=== PATIENT | male | born 1955 | race Caucasian/White ===

== ENCOUNTER 2020-12-20 01:14 | Day surgery (SDC) | payer BC, MEDICARE, SELFPAY ==
[2020-12-10 14:50] VITALS: BMI 33.7
--- NOTE | 2020-12-20 07:42 | WPDANESEPPF ---
Anes - Initial Pre Proc Eval Procedure: Operation Date: 12/20/20 09:00 Proposed Procedures p Excision Right Shoulder Mass, Excision Left Upper Quadrant Abdominal Wall Mass - Siddhartha Hudson DO Date/Time: 12/20/20 07:42 Surgeon: Jo Ann May MD Pre Op Diagnosis: 4cm Rt Shoulder Mass, 1.5 cm LUQ Abd Wall Mass Patient Data Age: 64 Gender: M Height: 1.85 m Weight: 115.9 kg Allergies Allergy/AdvReac Type Severity Reaction Status Date / Time lisinopril Allergy Unknown tongue Verified 12/20/20 07:22 swelling Sulfa (Sulfonamide Allergy Unknown Skin Verified 12/20/20 07:22 Antibiotics) Reaction CHROMATES Allergy Unknown DERMATITIS Uncoded 12/20/20 07:22 Ethylene Diamine Tetraacetic Allergy Unknown SKIN Uncoded 12/20/20 07:22 Acid IRRITATION Home Medications Medication Instructions Recorded Confirmed Type metoprolol succinate 25 mg See Rx Instructions .ROUTE 07/19/20 12/20/20 Rx tablet,extended release 24 hr .COMPLEX #30 tablet amlodipine 5 mg tablet 5 mg PO BID #180 tablet 11/30/20 12/20/20 Rx amoxicillin-pot clavulanate 1 tablet PO BID 12/10/20 12/20/20 History fluoxetine 20 mg PO BID 12/10/20 12/20/20 History latanoprost 1 drp EACH EYE HS 12/10/20 12/20/20 History Patient hx anesthesia problems: none Family hx anesthesia problems: none PMFSH Past Medical History Medical History Dyslipidemia Mixed hyperlipidemia MRSA (methicillin resistant staph aureus) culture positive Obstructive sleep apnea (adult) (pediatric) JONATHAN on CPAP Spinal stenosis of lumbar region c4-c7 bolted with plates Spinal stenosis, lumbar region, without neurogenic claudication Surgical History Surgical History H/O hernia repair 2013 umbilical hernia repair, Dr. Lynn H/O knee surgery 5 surgery on right leg/both knees worked on History of hip surgery left side Hx of tonsillectomy S/P surgical removal of pilonidal cyst buttocks Family History Family History Grandparent Diabetes mellitus Father Family history of glaucoma Hypertension Family history of elevated blood lipids Family history of cardiovascular disease Family history of malignant neoplasm, Onset Age: 73 Carcinoma of colon Sibling Hypertension Family history of elevated blood lipids Social History Social History Smoking packs per day: 1 Smoking cigarettes per day: 20.0 Years smoked: 20 Smoking pack-years: 20.00 Smoking status: Former smoker Smoking end date: 12/10/00 Alcohol intake: current Drinks per week: 1 Substance use: current Substance use type: marijuana Living arrangements: with family Spiritual care concerns: No Anes - Eval Final PreProcedure Day of Procedure 12/20/20 07:42 Patient weight: obese Heart: regular rate and rhythm Lungs: decreased breath sounds Airway: Mallampati scale class 1 Neurological: alert and oriented Last oral intake: >/= 8 hours ASA classification: III Emergent: no Anesthetic plan: proceed Anesthesia type and monitoring: general GIVS and standard monitoring Other findings: glidescope if intubation pre position padding of right arm Informed Consent: The patient's anesthetic plan and its attendant risks and benefits were discussed with the patient/family/POA. Questions were solicited and answers provided to the satisfaction of the patient/family/POA.
[2020-12-20 07:51] VITALS: BMI 33.4
[2020-12-20] MEDS: LACTATED RINGERS 1,000 ML 30 ML IV CONT (07:52)
[2020-12-20 07:56] VITALS: BP 166/95; PULSE 61; RESP 18; TEMP 36.8; O2SAT 97
--- NOTE | 2020-12-20 08:46 | WPDHPUPDATE1 ---
History and Physical Update Update Date/Time: 12/20/20 08:46 History and Physical has been reviewed, including an updated exam of the patient. There are NO changes in the patient's condition. Risks, benefits, and alternatives have been discussed and questions answered. Patient agrees to proceed with procedure.
[2020-12-20] MEDS: ceFAZolin 2 GM/D5W 50 ML 2 GM/50 ML BAG IVPB (08:50)
[2020-12-20] MEDS: LIDO 1%/EPINEPHRINE 1:100,000 50 ML VIAL 20 ML INFILTRATE (09:09)
[2020-12-20 09:32] VITALS: BP 115/69; PULSE 55; RESP 20; O2SAT 96
--- NOTE | 2020-12-20 09:38 | W.PM.PROC2 ---
Procedure Note - Detailed Date of Procedure 12/20/20 Pre-op Diagnosis 4cm Rt Shoulder Mass, 1.5 cm LUQ Abd Wall Mass Post-op Diagnosis same Procedure Performed Excisional biopsy right shoulder mass 4 cm, left upper quadrant abdominal wall mass 1.5 cm Surgeon Jo Ann May MD Anesthesia MAC and local Indications The patient is a 64-year-old male presenting to the office with a right shoulder mass and left upper quadrant abdominal wall mass. These masses have been present for greater than a year and have been progressively enlarging. The patient reports the right shoulder mass is especially painful. 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 After adequate induction MAC anesthesia, the patient was prepped and draped in the normal sterile fashion. A time-out was then done to verify the patient's identity, as well as the procedure being performed. I began by localizing both these areas. I then made an incision over the left upper quadrant mass. This was taken down through the dermis into the subcutaneous tissue. A well-circumscribed mass measuring approximately 1.5 cm was noted. I was able to get around this mass bluntly and excise it in full. This looked to be a lipoma. I then gained hemostasis with the Bovie cautery. I then closed the subcutaneous tissue with 3-0 Vicryl suture and the skin was closed with 4 Monocryl subcuticular suture. I then made an incision over the larger mass in the right anterior shoulder. Again this incision was carried down through the dermis into the subcutaneous tissue. Multi lobular lipoma was noted at this area. I was able to excise this mass in full and it measured approximately 4 cm. Once the mass was completely excised, it was sent to pathology for further review. I then gained hemostasis with the Bovie cautery. The subcutaneous tissue was again closed with 3-0 Vicryl suture. Skin was closed with 4 Monocryl subcuticular suture and Dermabond was placed on the wound. The patient tolerated the procedures well and was alert and awake in the operating room postoperatively. He will be sent to the recovery room in stable condition.
[2020-12-20 10:00] VITALS: BP 126/83; PULSE 54; RESP 18; O2SAT 95
[2020-12-20 10:15] VITALS: BP 138/82; PULSE 47; RESP 18
== END 2020-12-20 10:23 | disposition home or self-care (01) ==
PROVIDERS: PCP Family Medicine; Visit Provider Surgery
PROC: (CPT 23071; principal; 2020-12-20 09:00)
DX: D17.21 Benign lipomatous neoplasm of skin and subcutaneous tissue of right arm (principal); D17.1 Benign lipomatous neoplasm of skin and subcutaneous tissue of trunk; E78.2 Mixed hyperlipidemia; G47.33 Obstructive sleep apnea (adult) (pediatric); M48.061 Spinal stenosis, lumbar region without neurogenic claudication; Z22.322 Carrier or suspected carrier of Methicillin resistant Staphylococcus aureus; Z87.891 Personal history of nicotine dependence; F12.90 Cannabis use, unspecified, uncomplicated; E66.9 Obesity, unspecified; Z68.33 Body mass index [BMI] 33.0-33.9, adult
CPT/HCPCS: 23071; 22902; 88304; A9270; J0690; J2250; J2270; J7120

== ENCOUNTER 2021-11-25 08:17 | Outpatient (CLI) | payer BC, MEDICARE, SELFPAY ==
[2021-11-25 19:22] LABS: Basophils Absolute Auto 0.1 K/mm3 (0.0-0.1); Basophils Percent Auto 0.8 % (0.2-1.2); Eosinophils Absolute Auto 0.4 K/mm3 (0-0.3); Eosinophils Percent Auto 4.1 % (0-4.4); Hematocrit 44.9 % (42.0-52.0); Hemoglobin 14.1 g/dL (14.0-18.0); Immature Granulocyte Absolute 0.05 K/mm3 (0.00-0.031); Immature Granulocyte Percent A 0.6 % (0-0.5); Lymphocytes Absolute Auto 1.34 K/mm3 (0.9-3.2); Lymphocytes Percent Auto 15.3 % (18.3-44.2); Mean Corpuscular HGB Conc 31.4 g/dl (32-36); Mean Corpuscular Hemoglobin 29.2 pg (26-34); Mean Platelet Volume 12.8 fl (7.4-10.4); Monocytes Absolute Auto 0.9 K/mm3 (0.1-0.6); Monocytes Percent Auto 9.8 % (2.6-8.5); Neutrophils Absolute Auto 6.1 K/mm3 (1.3-6.7); Neutrophils Percent Auto 69.4 % (45.5-73.1); Platelet Count Result 203 k/mm3 (150-375); Red Blood Count 4.83 M/mm3 (4.6-6.20); Red Cell Distribution Width 13.3 % (11.5-14.5); White Blood Count 8.8 K/mm3 (4.5-10.0)
[2021-11-25 19:23] LABS: Alanine Aminotransferase 20 U/L (6-50); Alkaline Phosphatase 62 U/L (38-126); Anion Gap 6 mmol/L (8-16); Aspartate Amino Transferase 40 U/L (17-59); Bilirubin,Total 0.2 mg/dL (0.2-1.3); Blood Urea Nitrogen 14 mg/dL (9-20); Calcium 8.8 mg/dL (8.4-10.2); Carbon Dioxide 28 mmol/L (22-30); Chloride 103 mmol/L (98-107); Cholesterol 152 mg/dL (0-200); Estimated Glomerular Filt Rate > 60; Glucose 90 mg/dL (65-110); HDL Direct 43 mg/dL; Potassium 4.7 mmol/L (3.4-5.0); Sodium 137 mmol/L (137-145); Triglycerides 68 mg/dL (<150)
[2021-11-25 19:34] LABS: LDL Cholesterol Direct 82 mg/dL
[2021-11-25 19:51] LABS: Prostate Specific Antigen 0.5 ng/mL (< OR = 4.0)
== END 2021-11-25 08:18 | disposition home or self-care (01) ==
LOC: ANHGOSHLAB 08:24
PROVIDERS: PCP Emergency Medicine; Visit Provider Physician Assistant
DX: E78.2 Mixed hyperlipidemia (principal); Z79.899 Other long term (current) drug therapy; Z12.5 Encounter for screening for malignant neoplasm of prostate
CPT/HCPCS: 36415; 80053; 80061; 84153; 84443; 85025; G0103

== ENCOUNTER 2022-04-11 08:02 | Outpatient (CLI) | payer BC, MEDICARE, SELFPAY ==
--- NOTE | ~2022-04-11 | CT_ITS ---
EXAMINATION: CT lung screening DATE: 04/11/2022 08:53 INDICATION: Personal history of nicotine dependence, prior smoker with 20 pack year history TECHNIQUE: Computed tomography (CT) of the chest was performed without intravenous contrast. The dose -length product (DLP) was 258.14 mGy-cm. Automated exposure control and iterative reconstruction tech St[employer] Fix were employed. COMPARISON: None FINDINGS: There is mild emphysema. There are a few pulmonary nodules measuring 1 to 2 mm. There is at electasis in the lower lobes. No pleural effusion or pneumothorax. No pathologically enlarged thoraci c lymph nodes are identified. The heart size is normal. Calcified coronary artery atherosclerosis is noted. There are partially imaged cyst of the right kidney upper pole which measure up to 6.9 cm. IMPRESSION: 1. Lung-RADS category 2: Benign appearance or behavior. Continue annual screening with noncontrast lo w-dose chest CT in 12 months. Reviewed, dictated and finalized at location L. L SHAPING MACHINE OPERATOR IMPRESSION: 1. Lung-RADS category 2: Benign appearance or behavior. Continue annual screeni ng with noncontrast low-dose chest CT in 12 months.
== END 2022-04-11 08:03 | disposition home or self-care (01) ==
PROVIDERS: PCP Emergency Medicine; Visit Provider Emergency Medicine
DX: Z12.2 Encounter for screening for malignant neoplasm of respiratory organs (principal); Z87.891 Personal history of nicotine dependence
CPT/HCPCS: 71271

== ENCOUNTER 2022-10-04 09:57 | Outpatient (CLI) | payer BC, MEDICARE, SELFPAY ==
[2022-10-04 18:59] LABS: Alanine Aminotransferase 24 U/L (6-50); Albumin Level 4.1 g/dL (3.5-5.1); Alkaline Phosphatase 58 U/L (38-126); Anion Gap 7 mmol/L (8-16); Aspartate Amino Transferase 29 U/L (17-59); Bilirubin,Total 0.4 mg/dL (0.2-1.3); Blood Urea Nitrogen 22 mg/dL (9-20); Calcium 8.3 mg/dL (8.4-10.2); Carbon Dioxide 24 mmol/L (22-30); Chloride 106 mmol/L (98-107); Cholesterol 150 mg/dL (0-200); Estimated Glomerular Filt Rate > 60; Glucose 96 mg/dL (65-110); HDL Direct 35 mg/dL; Potassium 4.1 mmol/L (3.4-5.0); Sodium 137 mmol/L (137-145); Triglycerides 60 mg/dL (<150)
[2022-10-04 19:15] LABS: Basophils Absolute Auto 0.1 K/mm3 (0.0-0.1); Basophils Percent Auto 0.7 % (0.2-1.2); Eosinophils Absolute Auto 0.3 K/mm3 (0-0.3); Eosinophils Percent Auto 3.6 % (0-4.4); Hematocrit 44.1 % (42.0-52.0); Hemoglobin 14.1 g/dL (14.0-18.0); Immature Granulocyte Absolute 0.05 K/mm3 (0.00-0.031); Immature Granulocyte Percent A 0.7 % (0-0.5); Lymphocytes Absolute Auto 1.43 K/mm3 (0.9-3.2); Lymphocytes Percent Auto 18.9 % (18.3-44.2); Mean Corpuscular Hemoglobin 29.1 pg (26-34); Mean Corpuscular Volume 90.9 fl (80-100); Monocytes Absolute Auto 0.7 K/mm3 (0.1-0.6); Monocytes Percent Auto 8.7 % (2.6-8.5); Neutrophils Absolute Auto 5.1 K/mm3 (1.3-6.7); Neutrophils Percent Auto 67.4 % (45.5-73.1); Platelet Count Result 198 k/mm3 (150-375); Red Blood Count 4.85 M/mm3 (4.6-6.20); White Blood Count 7.6 K/mm3 (4.5-10.0)
[2022-10-04 19:16] LABS: LDL Cholesterol Direct 90 mg/dL
[2022-10-04 19:21] LABS: Prostate Specific Antigen 0.4 ng/mL (< OR = 4.0)
== END 2022-10-04 09:58 | disposition home or self-care (01) ==
LOC: ANHGOSHLAB 09:58
PROVIDERS: PCP Emergency Medicine; Visit Provider Emergency Medicine
DX: G47.30 Sleep apnea, unspecified (principal); E78.2 Mixed hyperlipidemia; Z12.5 Encounter for screening for malignant neoplasm of prostate
CPT/HCPCS: 36415; 80053; 80061; 84153; 85025; G0103

== ENCOUNTER 2023-04-21 15:14 | Emergency (ER) | payer BC, MEDICARE, SELFPAY ==
--- NOTE | ~2023-04-21 | XR_ITS ---
EXAM: XR toe 1st LT min 2V DATE: 04/21/2023 15:52 HISTORY: FOREIGN BODY . COMPARISON: None available. FINDINGS: Normal mineralization. No fracture or dislocation. No lytic or blastic lesion. Mild degene rative change at the first MTP joint. No erosion or periosteal change. Mild soft tissue swelling abou t the first MTP joint. IMPRESSION: No radiopaque foreign body detected. Reviewed, dictated and finalized at location K. TEAM COORDINATOR SCHEDULER
[2023-04-21 15:16] VITALS: BP 213/144; PULSE 104; RESP 20; TEMP 36.6; O2SAT 99
--- NOTE | 2023-04-21 15:25 | ED.PSYCH ---
HPI - Psych General Chief Complaint: Psychiatric Symptoms <Madelin Marmolejo MD - Last Filed: 04/22/23 11:09> Stated Complaint: Psychotic episode <Madelin Marmolejo MD - Last Filed: 04/22/23 11:09> Time Seen by Provider: 04/21/23 15:24 <Madelin Marmolejo MD - Last Filed: 04/22/23 11:09> History of Present Illness HPI Narrative: Patient is a 67-year-old male with history of depression, PTSD, hypertension here with family for psychiatric evaluation. Patient has been under increased stressors recently with his family. Family notes that police were called to the house for his erratic behavior. Patient's family notes he has sent countless nonsensical text messages to them over the last couple of days. He reportedly kicked his out of the house and trashed several pieces of furniture. Patient notes he stepped on some glass yesterday, is worried there may be some in his left great toe. Unsure of when his last tetanus shot was. Patient notes he is here for his blood pressure which has been running high at home on his home cuff. He notes he can tell when his blood pressure is high which makes him check it. He describes this as feeling it in my body and head but denies chest pain, shortness of breath, headache. He notes he has been compliant with his medications. He is tearful during exam, notes a lot of stress with one of his children lately. He denies any SI or HI. Family denies any prior psychiatric hospitalizations. <Madelin Marmolejo MD - Last Filed: 04/22/23 11:09> Related Data Home Medications: Home Medications Medication Instructions Recorded Confirmed amoxicillin 875 mg-potassium 1 tablet PO BID 09/29/22 04/22/23 clavulanate 125 mg tablet <Madelin Marmolejo MD - Last Filed: 04/22/23 11:09> Allergies/Adverse Reactions: Allergies Allergy/AdvReac Type Severity Reaction Status Date / Time lisinopril Allergy Unknown tongue Verified 04/13/23 10:43 swelling Sulfa (Sulfonamide Allergy Unknown Skin Verified 04/13/23 10:43 Antibiotics) Reaction CHROMATES Allergy Unknown DERMATITIS Uncoded 04/13/23 10:43 Ethylene Diamine Tetraacetic Allergy Unknown SKIN Uncoded 04/13/23 10:43 Acid IRRITATION <Madelin Marmolejo MD - Last Filed: 04/22/23 11:09> Review of Systems Review of Systems: All systems reviewed & are unremarkable except as noted in HPI and below <Madelin Marmolejo MD - Last Filed: 04/22/23 11:09> PMFSH Past Medical History Medical History: Medical History Dyslipidemia Hepatitis C antibody test negative (09/21/11) History of 2019 novel coronavirus disease (COVID-19) Mixed hyperlipidemia MRSA (methicillin resistant staph aureus) culture positive Obstructive sleep apnea (adult) (pediatric) JONATHAN on CPAP Spinal stenosis of lumbar region c4-c7 bolted with plates Spinal stenosis, lumbar region, without neurogenic claudication <Madelin Marmolejo MD - Last Filed: 04/22/23 11:09> Surgical History Surgical History: Surgical History H/O hernia repair 2013 umbilical hernia repair, Dr. Lynn H/O knee surgery 5 surgery on right leg/both knees worked on History of hip surgery left side Hx of tonsillectomy S/P surgical removal of pilonidal cyst buttocks <Madelin Marmolejo MD - Last Filed: 04/22/23 11:09> Family History Family History: Family History Grandparent Diabetes mellitus Father Family history of glaucoma Hypertension Family history of elevated blood lipids Family history of cardiovascular disease Family history of malignant neoplasm, Onset Age: 73 Carcinoma of colon Sibling Hypertension Family history of elevated blood lipids <Madelin Marmolejo MD - Last Filed: 04/22/23 11:09> Social History Social History: Social History (Updated 04/13/23 @ 10:53 by Dasha Tabor MA) Smoking packs per day:
[2023-04-21 15:36] LABS: Basophils Percent Auto 0.4 % (0.2-1.2); Eosinophils Absolute Auto 0.2 K/mm3 (0-0.3); Eosinophils Percent Auto 2.2 % (0-4.4); Hematocrit 42.5 % (42.0-52.0); Hemoglobin 13.5 g/dL (14.0-18.0); Immature Granulocyte Absolute 0.03 K/mm3 (0.00-0.031); Immature Granulocyte Percent A 0.3 % (0-0.5); Lymphocytes Absolute Auto 1.61 K/mm3 (0.9-3.2); Mean Corpuscular HGB Conc 31.8 g/dl (32-36); Mean Corpuscular Hemoglobin 28.7 pg (26-34); Mean Corpuscular Volume 90.2 fl (80-100); Mean Platelet Volume 11.1 fl (7.4-10.4); Monocytes Absolute Auto 0.9 K/mm3 (0.1-0.6); Monocytes Percent Auto 9.3 % (2.6-8.5); Neutrophils Absolute Auto 6.7 K/mm3 (1.3-6.7); Neutrophils Percent Auto 70.8 % (45.5-73.1); Platelet Count Result 231 k/mm3 (150-375); Red Blood Count 4.71 M/mm3 (4.6-6.20); Red Cell Distribution Width 13.6 % (11.5-14.5); White Blood Count 9.5 K/mm3 (4.5-10.0)
[2023-04-21 15:37] VITALS: BP 184/112; PULSE 88; RESP 16; O2SAT 96
[2023-04-21 15:51] LABS: Alanine Aminotransferase 58 U/L (6-50); Albumin Level 4.1 g/dL (3.5-5.1); Alkaline Phosphatase 66 U/L (38-126); Anion Gap 8 mmol/L (8-16); Aspartate Amino Transferase 104 U/L (17-59); Bilirubin,Total 0.8 mg/dL (0.2-1.3); Blood Urea Nitrogen 14 mg/dL (9-20); Carbon Dioxide 24 mmol/L (22-30); Chloride 106 mmol/L (98-107); Estimated CRCL calculation 93 ml/min; Estimated Glomerular Filt Rate > 60; Ethanol < 10 mg/dL (<10); Glucose 94 mg/dL (65-110); Potassium 3.5 mmol/L (3.4-5.0); Sodium 138 mmol/L (137-145)
[2023-04-21 15:53] LABS: Appearance Urine Clear (Clear); Bilirubin Urine Negative (Negative); Blood Urine Negative (Negative); Color Urine Yellow (Yellow); Glucose Urine UA Negative (Negative); Ketones Urine 1+ mg/dL (Negative); Leukocyte Esterase Ur Negative LEU/UL (Negative); Nitrate Urine Negative (Negative); Protein Urine Negative (Negative); Specific Grav Ur 1.022 (1.001-1.035); pH Urine 5.5 (5.0-9.0)
[2023-04-21 15:59] LABS: Add Urine Microscopic? NO
[2023-04-21 16:07] LABS: Amphetamine Screen Urine Negative (Negative); Barbiturate Screen Urine Negative (Negative); Benzodiazepines Screen Urine Negative (Negative); Cannabinoid Screen Urine Positive (Negative); Cocaine Screen Urine Negative (Negative); Methadone Screen Urine Negative (Negative); Opiate Screen Urine Negative (Negative); Phencyclidine Screen Urine Negative (Negative)
[2023-04-21 16:21] LABS: Thyroid Stimulating Hormone 0.868 uIU/mL (0.465-4.680)
[2023-04-21] MEDS: TETANUS,DIPHTHERIA,AC PERTUSSIS ADULT (0.5 ML) BOOSTRIX IM (16:34)
[2023-04-21] MEDS: OLANZapine DISPERTAB 5 MG PO (16:35)
[2023-04-21 16:39] VITALS: BP 177/108; PULSE 84; RESP 16; O2SAT 98
[2023-04-21 18:38] LABS: SARS-CoV-2 RNA PCR Negative (Negative)
--- NOTE | 2023-04-21 19:22 | PC.NURSE ---
THIS RN ASSUMED CARE OF PATIENT. THIS RN TOOK PATIENT REPORT FROM [facility].
[2023-04-21] MEDS: LORazepam INJ (*CRX) 2 MG/ML VIAL 1 MG IV PUSH (19:48)
--- NOTE | 2023-04-22 00:09 | PC.NURSE ---
THIS RN SPOKE WITH [facility] WHO DENIED PLACEMENT. THIS RN ALSO SPOKE WITH [facility] WHO STATED PT REPORT WAS UNDER REVIEW .
[2023-04-22 00:15] VITALS: BP 200/134; PULSE 84; RESP 16; O2SAT 98
--- NOTE | 2023-04-22 03:02 | PC.NURSE ---
pt was accepted to [facility] and was stated to arrive at or after 0930 to intake office. transport was established with [facility] for an approximated time of 1130.
[2023-04-22 08:07] VITALS: BP 187/121; PULSE 101; RESP 18; TEMP 36.9; O2SAT 95
[2023-04-22] MEDS: AMOXICILLIN/CLAVULANATE K 875-125 MG TAB 1 TABLET PO (08:54)
[2023-04-22] MEDS: amLODIPine BESYLATE 5 MG TABLET PO (08:54)
[2023-04-22 08:55] VITALS: PULSE 101
[2023-04-22] MEDS: FLUoxetine HCL 20 MG CAPSULE PO (08:55)
[2023-04-22] MEDS: ROSUVASTATIN 5 MG TABLET PO (08:55)
[2023-04-22] MEDS: METOPROLOL SUCCINATE EXT REL 25 MG TABCR PO (08:55)
[2023-04-22 11:10] VITALS: BP 160/115; PULSE 84; RESP 18; O2SAT 95
== END 2023-04-22 11:52 ==
PROVIDERS: Emergency Provider Student in an Organized Health Care Education/Training Program; PCP Emergency Medicine
DX: F32.A Depression, unspecified (principal); S91.112A Laceration without foreign body of left great toe without damage to nail, initial encounter; Z23 Encounter for immunization; Z11.52 Encounter for screening for COVID-19; I10 Essential (primary) hypertension; E78.2 Mixed hyperlipidemia; G47.33 Obstructive sleep apnea (adult) (pediatric); F43.10 Post-traumatic stress disorder, unspecified; Z98.1 Arthrodesis status; Z86.16 Personal history of COVID-19; Z86.14 Personal history of Methicillin resistant Staphylococcus aureus infection; Z87.891 Personal history of nicotine dependence; Z86.19 Personal history of other infectious and parasitic diseases; W25.XXXA Contact with sharp glass, initial encounter
CPT/HCPCS: 36415; 73660; 80053; 80307; 81003; 84443; 85025; 87635; 90471; 90715; 96374; 99285; A9270; J2060; J2704

== ENCOUNTER 2023-05-09 09:18 | Outpatient (CLI) | payer BC, MEDICARE, SELFPAY ==
[2023-05-09 19:00] LABS: Alanine Aminotransferase 24 U/L (6-50); Albumin Level 4.1 g/dL (3.5-5.1); Alkaline Phosphatase 61 U/L (38-126); Anion Gap 6 mmol/L (8-16); Aspartate Amino Transferase 31 U/L (17-59); Bilirubin,Total 0.5 mg/dL (0.2-1.3); Blood Urea Nitrogen 13 mg/dL (9-20); Calcium 9.2 mg/dL (8.4-10.2); Carbon Dioxide 28 mmol/L (22-30); Chloride 105 mmol/L (98-107); Cholesterol 142 mg/dL (0-200); Estimated Glomerular Filt Rate > 60; Glucose 102 mg/dL (65-110); HDL Direct 35 mg/dL; Potassium 3.9 mmol/L (3.4-5.0); Sodium 139 mmol/L (137-145); Triglycerides 64 mg/dL (<150)
[2023-05-09 19:10] LABS: LDL Cholesterol Direct 79 mg/dL
== END 2023-05-09 09:19 | disposition home or self-care (01) ==
LOC: ANHGOSHLAB 09:21
PROVIDERS: PCP Emergency Medicine; Visit Provider Emergency Medicine
DX: R74.8 Abnormal levels of other serum enzymes (principal); E78.2 Mixed hyperlipidemia
CPT/HCPCS: 36415; 80053; 80061